=== PATIENT | female | born 1985 | race Caucasian/White ===

== ENCOUNTER 2020-11-04 22:55 | Emergency (ER) | payer OTHER ==
[~2020-11-04] VITALS: Ht 154.9 cm; Wt 62.1 kg
[2020-11-04] MEDS ORDERED: LIDOCAINE-MPF 1%, 2ML ONE ×2 (23:14→23:39)
[2020-11-04] MEDS ORDERED: LIDOCAINE-MPF 1%, 5ML INFIL ONE (23:30)
[2020-11-05 00:10] VITALS: BP 115/62
== END 2020-11-05 00:11 | disposition home or self-care (01) ==
LOC: ED 11-05 00:05
DX: L60.0 Ingrowing nail (principal); L03.032 Cellulitis of left toe; M79.672 Pain in left foot; F12.10 Cannabis abuse, uncomplicated; F14.10 Cocaine abuse, uncomplicated; Z72.9 Problem related to lifestyle, unspecified
CPT/HCPCS: 11730; 99284

== ENCOUNTER 2020-11-21 21:11 | Emergency (ER) | payer BC ==
[~2020-11-21] VITALS: Ht 154.9 cm; Wt 60.9 kg
--- NOTE | 2020-11-21 21:33 | NUR ---
PT PRESENT TO ER WITH FEVER AND SORE THROAT. SHE HAS BEEN COMPLIANING OF A FEVER FOR THE LAST 3 DAYS. PT HOOKED TO MONITORS AND IN GOWN, RESTING ON GURNEY.
[2020-11-21] MEDS ORDERED: ACETAMINOPHEN 500 MG TABLET PO ONE (22:00)
[2020-11-21] MEDS ORDERED: IBUPROFEN 200 MG TABLET PO ONE (22:00)
[2020-11-21] MEDS ORDERED: DEXAMETHASONE 4 MG TABLET PO ONE (22:00)
[2020-11-21] MEDS ORDERED: IBUPROFEN 200 MG TABLET ONE (22:13)
[2020-11-21] MEDS ORDERED: ACETAMINOPHEN 500 MG TABLET ONE (22:13)
[2020-11-21] MEDS ORDERED: DEXAMETHASONE 4 MG TABLET ONE (22:13)
--- NOTE | 2020-11-21 22:15 | NUR ---
MEDS GIVEN, PT RESTING COMFORTABLY ON GURNEY, PT DOES COMPLAIN OF BEING COLD, 2 BLANKETS ON PT.
[2020-11-21 23:40] VITALS: BP 102/59
--- NOTE | 2020-11-21 23:50 | NUR ---
MEDICATION AND DISCHARGE INSTRUCTIONS GIVEN
[2020-11-21] MEDS ORDERED: AMOXICILLIN 500 MG CAPSULE ONE (23:52)
[2020-11-22] MEDS ORDERED: AMOXICILLIN 500 MG CAPSULE PO SCH
--- NOTE | 2020-11-22 00:14 | NUR ---
Patient given discharge instructions and they have confirmed that they understand the instructions. Patient ambulatory with steady gait.
== END 2020-11-22 00:16 | disposition home or self-care (01) ==
LOC: ED 21:53
DX: J02.0 Streptococcal pharyngitis (principal); F17.210 Nicotine dependence, cigarettes, uncomplicated; R00.0 Tachycardia, unspecified
CPT/HCPCS: 71045; 87880; 93005; 99406